=== PATIENT | male | born 1975 | race Caucasian/White ===

== ENCOUNTER 2022-01-01 08:53 | Day surgery (SDC) | payer OTHER ==
[~2022-01-01] VITALS: Ht 167.6 cm; Wt 103.7 kg
[2022-01-01] MEDS ORDERED: BACLOFEN5 M1 PO (09:50)
[2022-01-01] MEDS ORDERED: Atarax10 MG PO (09:50)
[2022-01-01] MEDS ORDERED: MELO7.5 (09:51)
[2022-01-01] MEDS ORDERED: OMEP20ER PO (09:51)
[2022-01-01] MEDS ORDERED: ALBU90OI INH (09:54)
--- NOTE | 2022-01-01 11:51 | NUR ---
01/01/22 1151 Cherelle Kaplan ALL CHARTING DONE BY ANGIE CARTER STUDENT NURSE. 0.15ML OF EPI 1 MG/ML ADDED TO 30ML OF ROPICAINE 0.5% TO CREATE A SOLUTION OF ROPICAINE 0.5% WITH EPI 1:200,000. STRENGTH OF EPI VERIFIED BY [email or web address].
--- NOTE | 2022-01-01 13:16 | NUR ---
01/01/22 1316 KATHARINA DAHL C/O PAIN 09/29. PT AWAKE- FENTANYL 50MCG GIVEN NOW
--- NOTE | 2022-01-01 13:52 | NUR ---
01/01/22 1352 KATHARINA DAHL PT STATES PAIN 09/29. STATES HE IS OKAY GOING HOME WITH AMOUNT OF PAIN. PAIN PILL WAS GIVEN APPROX 12 MIN AGO BY NICOLE ALBA
== END 2022-01-01 14:10 | disposition home or self-care (01) ==
LOC: ORSCSDS 08:53
PROVIDERS: Orthopaedic Surgery
PROC: 0RQT0ZZ Repair Left Carpometacarpal Joint, Open Approach (ICD-10-PCS; principal; 2022-01-01 10:30)
DX: M18.12 Unilateral primary osteoarthritis of first carpometacarpal joint, left hand (principal); I10 Essential (primary) hypertension; J45.909 Unspecified asthma, uncomplicated; K21.9 Gastro-esophageal reflux disease without esophagitis; Z79.899 Other long term (current) drug therapy; G47.33 Obstructive sleep apnea (adult) (pediatric); E66.9 Obesity, unspecified; Z68.36 Body mass index [BMI] 36.0-36.9, adult
CPT/HCPCS: A9270; C1713; J0171; J0690; J1100; J1885; J2250; J2405; J2704; J2795; J3010; J7120

== ENCOUNTER 2022-06-08 11:21 | Emergency (ER) | payer OTHER ==
[~2022-06-08] VITALS: Ht 167.6 cm; Wt 104.3 kg
[~2022-06-08 11:21] MED LIST: ALBU90OI INH; Atarax10 MG PO; BACLOFEN5 M1 PO; MELO7.5; OMEP20ER PO
[2022-06-08 11:51] LABS: BASOPHILS ABSOLUTE AUTO 0.04 K/mm3 (0.00-0.23); BASOPHILS PERCENT AUTO 0 % (0-2); EOSINOPHILS ABSOLUTE AUTO 0.08 K/mm3 (0.00-0.68); EOSINOPHILS PERCENT AUTO 1 % (0-6); Hematocrit 44.1 % (37.0-53.0); Hemoglobin 14.9 g/dL (13.5-17.5); IMMATURE GRAN ABSOLUTE AUTO 0.03 K/mm3 (0.00-0.10); IMMATURE GRAN PERCENT AUTO 0 % (0-1); LYMPHOCYTES ABSOLUTE AUTO 1.75 K/mm3 (0.84-5.20); LYMPHOCYTES PERCENT AUTO 14 % (21-46); MONOCYTES ABSOLUTE AUTO 1.12 K/mm3 (0.16-1.47); MONOCYTES PERCENT AUTO 9 % (4-13); Mean Corpuscular HGB 29.4 pg (26.0-34.0); Mean Corpuscular HGB Conc 33.8 g/dL (31.5-36.5); Mean Corpuscular Volume 87 fL (80-100); Mean Platelet Volume 10.5 fL (9.1-12.4); NEUTROPHILS ABSOLUTE AUTO 9.45 K/mm3 (1.96-9.15); NEUTROPHILS PERCENT AUTO 76 % (41-73); Platelet Count 247 K/mm3 (150-400); RDW Coefficient Variation 13.5 % (11.7-14.2); RDW Standard Deviation 42.7 fL (35.1-46.3); Red Blood Cell Count 5.07 M/mm3 (4.30-5.90); White Blood Cell Count 12.47 K/mm3 (4.00-11.30)
[2022-06-08] MEDS ORDERED: CEPHALEXIN500 M1 PO (11:58)
[2022-06-08] MEDS ORDERED: Amoxicillin500 MG PO (12:12)
[2022-06-08 12:15] LABS: Albumin, Blood 3.8 g/dL (3.4-5.0); Bilirubin, Total 0.7 mg/dL (0.1-1.0); Bun/Creatinine Ratio 15.7 (12.0-20.0); Creatinine, Blood 0.95 mg/dL (0.60-1.20); Total Protein, Blood 7.8 g/dL (6.4-8.2)
== END 2022-06-08 12:30 | disposition home or self-care (01) ==
LOC: ER 11:21
PROVIDERS: Physician Assistant
DX: K04.7 Periapical abscess without sinus (principal); I10 Essential (primary) hypertension; K21.9 Gastro-esophageal reflux disease without esophagitis; Z79.899 Other long term (current) drug therapy
CPT/HCPCS: 36415; 80053; 85025; A9270